=== PATIENT | female | born 1975 | race American Indian/Alaskan Native ===

== ENCOUNTER 2016-12-23 09:36 | Emergency (ER) | payer MEDICAID, OTHER ==
[2016-12-23 09:49] VITALS: BP 143/92
[2016-12-23] MEDS ORDERED: TYLENOL #3 PO ONE (10:42)
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
== END 2016-12-23 12:57 | disposition home or self-care (01) ==
LOC: ED 09:36
DX: S13.4XXA Sprain of ligaments of cervical spine, initial encounter (principal); G43.909 Migraine, unspecified, not intractable, without status migrainosus; V49.49XA Driver injured in collision with other motor vehicles in traffic accident, initial encounter; X58.XXXA Exposure to other specified factors, initial encounter; Y93.9 Activity, unspecified; Y92.9 Unspecified place or not applicable; Y99.9 Unspecified external cause status
CPT/HCPCS: 72125; 99283